=== PATIENT | female | born 1950 | race Hispanic/Latino ===

== ENCOUNTER 2022-02-11 09:02 | Outpatient (CLI) | payer OTHER ==
--- NOTE | 2022-02-11 14:11 | Mammography Report ---
DIGITAL SCREENING MAMMOGRAM WITH CAD, 02/11/2022 CLINICAL INFORMATION / INDICATION: Routine screening mammography. SCREENING MAMMO TECHNIQUE: Digital bilateral 2D mammography was obtained in the craniocaudal and mediolateral obliqu e projections. This examination was interpreted with the benefit of Computer-Aided Detection analysis . COMPARISON: 10/20/2018. FINDINGS: Breast Density: The breasts are heterogeneously dense, which may obscure small masses. No dominant mass, suspicious calcifications, or architectural distortion in the right breast. Focal asymmetry upper left breast on the MLO view anteriorly IMPRESSION: Left breast asymmetry. Follow up recommendation: Special View: Spot Compression BI-RADS Category 0: INCOMPLETE. Needs additional imaging evaluation and/or prior mammograms for riri gallegos. A "normal" or negative report should not discourage follow up or biopsy of a clinically significant f inding. A written summary of these findings will be mailed to the patient. The patient will be entered into a mammography reporting system which will generate a reminder letter for the patient's next appointmen t at the appropriate interval. The [employer] recommends yearly mammograms starting at age 40 and continuing as l wenceslao as a woman is in good health. Breast MRI is recommended for women with an approximate 20-25% or greater lifetime risk of breast cancer, including women with a strong family history of breast or ova jame cancer or who have been treated for Hodgkin's disease. Signer Name: Erik Magallon MD Signed: 02/11/2022 2:07 PM Workstation Name: [employer]
== END 2022-02-11 09:03 | disposition home or self-care (01) ==
LOC: SPVWC 09:02
PROVIDERS: ATTEND Physician Assistant
DX: Z12.31 Encounter for screening mammogram for malignant neoplasm of breast (principal)
CPT/HCPCS: 77067

== ENCOUNTER 2022-03-14 09:20 | Outpatient (CLI) | payer OTHER ==
--- NOTE | 2022-03-14 10:33 | Mammography Report ---
LEFT DIGITAL DIAGNOSTIC MAMMOGRAM WITH CAD , 03/14/2022 LEFT LIMITED BREAST ULTRASOUND CLINICAL INFORMATION / INDICATION: 71-year-old female who presents for evaluation of abnormality iden tified on recent left screening mammogram. ABNORMAL MAMMOGRAM TECHNIQUE: Digital left mammographic imaging was performed. Spot compression views were obtained. [place] ited ultrasound was performed. This examination was interpreted with the benefit of Computer-Aided De tection (CAD) analysis. COMPARISON: Recent mammogram 02/11/2022 and prior mammogram 10/20/2018 FINDINGS: Breast Density: The breasts are heterogeneously dense, which may obscure small masses. MAMMOGRAPHIC FINDINGS: No dominant mass, suspicious calcifications, or architectural distortion in th e left breast. Spot compression views do not demonstrate persistence of abnormality identified on rec ent screening mammogram. The appearance of the mammogram with spot compression appears unchanged comp ared with 2019. ULTRASOUND FINDINGS: Targeted ultrasound evaluation was performed of the area of interest. Sonograp hic evaluation of the superior half of the breast unremarkable. No solid mass, cyst, or suspicious sh adowing noted. IMPRESSION: No mammographic or sonographic evidence of malignancy. Follow up recommendation: Routine yearly screening mammogram. BI-RADS Category 1: NEGATIVE. A "normal" or negative report should not discourage follow up or biopsy of a clinically significant f inding. A written summary of these findings will be mailed to the patient. The patient will be entered into a mammography reporting system which will generate a reminder letter for the patient's next appointmen t at the appropriate interval. According to the [employer], yearly mammograms are recommended starting at age 40 and continuing as long as a woman is in good health. Breast MRI is recommended for women with an maylin roximately 20-25% or greater lifetime risk of breast cancer, including women with a strong family his tory of breast or ovarian cancer and women who have been treated for Hodgkin's disease. Signer Name: Amanda Chun MD Signed: 03/14/2022 10:28 AM Workstation Name: [email or web address]
== END 2022-03-14 09:21 | disposition home or self-care (01) ==
LOC: MAMMO 09:20
PROVIDERS: ATTEND Clinical Nurse Specialist Family Health
DX: R92.2 Inconclusive mammogram (principal)